=== PATIENT | female | born 1990 | race Caucasian/White ===

== ENCOUNTER 2016-10-27 09:51 | Observation (INO) | payer OTHER ==
[~2016-10-27] VITALS: Ht 162.6 cm; Wt 90.7 kg
[~2016-10-27 09:51] MED LIST: PRENATAL VITAMI1 T10 PO
[2016-10-27 10:30] VITALS: BP 115/83
[2016-10-27] MEDS ORDERED: LACTATED RINGERS 1,000 ML IV SCH (10:45)
[2016-10-27] MEDS ORDERED: MORPHINE SULFATE 10 MG/ML SYR IVP PRN (10:45)
[2016-10-27] MEDS ORDERED: TERBUTALINE 1 MG/ML VIAL SUBQ SCH (11:00)
[2016-10-27] MEDS ORDERED: MORPHINE SULFATE 10 MG/ML SYR ONE (11:03)
[2016-10-27] MEDS ORDERED: TERBUTALINE 1 MG/ML VIAL SUBQ ONE ×2 (11:04→11:38)
[2016-10-27] MEDS ORDERED: BETAMETH ACET/BETAMETH NA PH 30 MG/5 ML VIAL IM SCH (11:10)
[2016-10-27] MEDS ORDERED: BETAMETH ACET/BETAMETH NA PH 30 MG/5 ML VIAL IM ONE ×2 (11:38→23:14)
[2016-10-27] MEDS ORDERED: TERBUTALINE 2.5 MG TAB PO SCH (15:30)
[2016-10-27] MEDS ORDERED: TERBUTALINE 2.5 MG TAB ONE ×2 (15:36→21:49)
== END 2016-10-27 23:50 | disposition home or self-care (01) ==
LOC: MFCC 09:51
PROVIDERS: ADMIT Obstetrics & Gynecology; ATTEND Obstetrics & Gynecology
DX: O62.9 Abnormality of forces of labor, unspecified (principal); Z3A.33 33 weeks gestation of pregnancy
CPT/HCPCS: 36415; 76805; 80305; 81001; 82731; 87086; 96372; G0378; J0702; J2270; J3105; J7120; Q0092

== ENCOUNTER 2017-03-25 21:49 | Emergency (ER) | payer OTHER ==
[~2017-03-25] VITALS: Ht 162.6 cm; Wt 85.0 kg
[~2017-03-25 21:49] MED LIST changes: +PREN-385 PO; -PRENATAL VITAMI1 T10 PO
[2017-03-25 21:53] VITALS: BP 126/79
--- NOTE | 2017-03-25 22:05 | NUR ---
Patient taken to XRAY via wheelchair per tech.
--- NOTE | 2017-03-25 22:14 | NUR ---
Patient back from XRAY via wheelchair per tech to bed 06.
--- NOTE | 2017-03-25 22:20 | NUR ---
27 Y/O F W/C/O L UPPER ABD PAIN, NAUSEA, VOMITING, PAINFUL AND FREQUENT URINATION X TODAY. DENIES ANY FEVER OR CHILLS. C/O PAIN 05/28 ER MD MADE AWARE.
[2017-03-25] MEDS ORDERED: KETOROLAC 60 MG/2 ML VIAL IM ONE (22:25)
[2017-03-25] MEDS ORDERED: fentaNYL 0.05 MG/ML VIAL IM ONE (23:00)
--- NOTE | 2017-03-25 23:08 | NUR ---
PT RESTING IN BED C/O PAIN 03/28, STATES SHE STILL UNABLE TO PROVIDE WITH URINE SAMPLE. ER NOTIFIED.
--- NOTE | 2017-03-25 23:52 | NUR ---
Patient taken to CT via wheelchair per tech.
--- NOTE | 2017-03-26 00:03 | NUR ---
PT BACK FROM CT SCAN.
[2017-03-26 01:21] VITALS: BP 101/49
--- NOTE | 2017-03-26 01:21 | NUR ---
Patient discharged with v/s stable. Written and verbal after care instructions given and explained. Patient alert, oriented and verbalized understanding of instructions. Ambulatory with steady gait. All questions addressed prior to discharge. ID band removed. Patient advised to follow up with PMD OR RETURN TO ED IF CONDITION WORSENS. Rx of TRAMADOL AND MOTRIN given. Patient educated on indication of medication including possible reaction and side effects. Opportunity to ask questions provided and answered.
== END 2017-03-26 01:21 | disposition home or self-care (01) ==
LOC: MED 21:49
DX: N13.2 Hydronephrosis with renal and ureteral calculous obstruction (principal)
CPT/HCPCS: 74000; 74176; 81002; 81025; 96372; 99284; J1885; J3010

== ENCOUNTER 2017-03-26 09:15 | Emergency (ER) | payer OTHER ==
[~2017-03-26] VITALS: Ht 162.6 cm; Wt 84.8 kg
--- NOTE | 2017-03-26 10:36 | NUR ---
Patient ambulated to bed 5 with family. RN evaluating patient at bedside.
[2017-03-26 10:41] VITALS: BP 109/63
--- NOTE | 2017-03-26 10:51 | NUR ---
27/F PRESENT TO ER C/O LR FLANK PAIN x 2 DAYS. PAIN 10/10 SHARP INTERMITENT RADIATING TO PELVIC AREA. PT DENIES N/V/D, BUT STATES HAS URINARY RETENTION SINCE LAST NIGHT. AAOx4, PERRLA, BREATHING EVEN AND UNLABORED. ERMD NOTIFIED OF PATIENT STATUS.
[2017-03-26] MEDS ORDERED: NACL 0.9% 1,000 ML IV ONE (12:25)
[2017-03-26] MEDS ORDERED: KETOROLAC 30 MG/ML VIAL IVP ONE (12:25)
[2017-03-26 12:26] LABS: BASOPHILS # (AUTO) 0.4 K/uL (0.00-0.22); BASOPHILS % (AUTO) 3.3 % (0.0-2.0); EOSINOPHILS # (AUTO) 0.3 K/uL (0-0.4); EOSINOPHILS % (AUTO) 2.2 % (0.0-4.0); HEMATOCRIT 41.7 % (36-48); HEMOGLOBIN 13.7 g/dL (12.0-16.0); MEAN CORPUSCULAR HEMOGLOBIN 29 pg (27-31); MEAN CORPUSCULAR HGB CONC 33 g/dL (33-37); MEAN CORPUSCULAR VOLUME 90 fL (80-94); MONOCYTES # (AUTO) 0.5 K/uL (0.8-1.0); MONOCYTES % (AUTO) 3.8 % (1.7-9.3); NEUTROPHILS % (AUTO) 82.7 % (42.2-75.2); PLATELET COUNT (AUTO) 289 K/uL (140-450); RED BLOOD CELL COUNT(AUTO) 4.65 MIL/uL (4.20-5.40); RED CELL DISTRIBUTION WIDTH 12.4 % (11.6-13.7); WHITE BLOOD COUNT (AUTO) 12.2 K/uL (4.8-10.8)
[2017-03-26 12:38] LABS: ANION GAP 11.6 (8-16); CALCIUM 9.3 mg/dL (8.5-10.1); CARBON DIOXIDE 27.6 mmol/L (21-32); CREATININE 0.7 mg/dL (0.6-1.3); POTASSIUM 4.2 mmol/L (3.5-5.1)
[2017-03-26 12:39] LABS: APPEARANCE,URINE HAZY (CLEAR); BILIRUBIN,URINE 1+ (NEGATIVE); BLOOD, URINE 3+ (NEGATIVE); COLOR,URINE YELLOW (YELLOW); LEUKOCYTE ESTERASE ,URINE NEGATIVE (NEGATIVE); NITRITE, URINE NEGATIVE (NEGATIVE); PROTEIN,URINE 1+ (NEGATIVE); UGLUCOSE NEGATIVE (NEGATIVE); UROBILINOGEN,URINE 0.2 EU/dL (0.2 - 1)
[2017-03-26 12:44] LABS: TOTAL BILIRUBIN 0.6 mg/dL (0.0-1.0); TOTAL PROTEIN, SERUM 7.6 g/dL (6.4-8.2)
[2017-03-26 13:07] LABS: ICTOTEST NEGATIVE (NEGATIVE)
[2017-03-26 13:08] LABS: BACTERIA,URINE 1+ /HPF (None Seen); MUCUS,URINE 1+ /LPF (None Seen); RBC,URINE TOO NUMEROUS TO COUN /HPF (0-5); SQUAMOUS EPITHELIAL CELL,UR 20-50 /LPF (0-3 (FEW)); WBC,URINE 0-5 (RARE) /HPF (0-5)
[2017-03-26] MEDS ORDERED: MORPHINE SULFATE 4 MG/ML SYR IVP ONE (13:20)
[2017-03-26 13:53] VITALS: BP 112/60
== END 2017-03-26 13:50 | disposition home or self-care (01) ==
LOC: MED 09:15
DX: N20.0 Calculus of kidney (principal)
CPT/HCPCS: 36415; 80053; 81001; 81025; 84702; 85025; 86900; 86901; 96361; 96374; 96375; 99284; J1885; J2270; J7030